=== PATIENT | female | born 1960 | race Caucasian/White ===

== ENCOUNTER 2018-08-08 17:29 | Emergency (ER) | payer SELFPAY ==
[2018-08-08 18:00] VITALS: BP 118/77; PULSE 81; RESP 16; TEMP 96.2; O2SAT 97
[2018-08-10 09:47] LABS: *HEP B SURFACE AB Nonreactive; *HEPATITIS C ANTIBODY Nonreactive (Nonreactive)
== END 2018-08-08 18:29 | disposition home or self-care (01) | DRG 605 ==
LOC: ED 17:29
DX: S61.239A Puncture wound without foreign body of unspecified finger without damage to nail, initial encounter (principal); W27.3XXA Contact with needle (sewing), initial encounter
CPT/HCPCS: 99282